=== PATIENT | female | born 1995 | race African-American/Black ===

== ENCOUNTER 2016-08-31 21:31 | Emergency (ER) | payer MEDICAID, OTHER ==
[~2016-08-31] VITALS: Ht 162.6 cm; Wt 85.3 kg
[2016-09-01] MEDS ORDERED: IBUPROFEN 800MG TABLET PO ONE (01:45)
[2016-09-01 02:38] LABS: BASOPHILS % 0.5 % (0.0-2.0); EOSINOPHILS % 2.4 % (0.0-5.0); HEMATOCRIT. 34.2 % (36.0-48.0); HEMOGLOBIN. 10.8 g/dL (12.0-16.0); LYMPHOCYTES % 39.5 % (20.0-50.0); MEAN CORPUSCULAR HEMOGLOBIN 20.9 pg (28.0-32.0); MEAN CORPUSCULAR VOLUME 66.1 fL (81.0-99.0); MEAN PLATELET VOLUME 7.4 fl (7.4-10.4); MONOCYTES % 4.3 % (2.0-8.0); NEUTROPHILS % 53.3 % (40.0-76.0); PLATELET 344 x1000/uL (130-400); RED BLOOD CELL COUNT 5.18 mill/uL (4.2-5.4); RED CELL DISTRIBUTION WIDTH 18.6 % (11.6-14.6)
[2016-09-01 02:47] LABS: CARBON DIOXIDE 27 mEq/L (21-32); CHLORIDE 106 mEq/L (98-107)
[2016-09-01 03:11] VITALS: BP 120/75
[2016-09-01] MEDS ORDERED: ACETAMINOPHEN 325MG TABLET PO ONE (03:45)
[2016-09-01 04:12] LABS: CLARITY URINE TURBID (CLEAR); COLOR URINE YELLOW (YELLOW); GLUCOSE URINE NEGATIVE (NEGATIVE); KETONES URINE NEGATIVE (NEGATIVE); LEUKOCYTE ESTERASE URINE TRACE (NEGATIVE); NITRITE URINE POSITIVE (NEGATIVE); OCCULT BLOOD URINE 3+ (NEGATIVE); PH URINE 7.5 (4.5-8.0); PROTEIN URINE NEGATIVE (NEGATIVE); SPECIFIC GRAVITY URINE 1.025 (1.005-1.030)
[2016-09-01] MEDS ORDERED: TETANUS, DIPHTHERIA, PERTUSSIS VAC/PF 0.5ML (>7YR OLD) IM ONE (04:15)
== END 2016-09-01 04:53 | disposition home or self-care (01) ==
LOC: ER 21:31
DX: R51 Headache (principal); M79.671 Pain in right foot; J45.909 Unspecified asthma, uncomplicated; F12.90 Cannabis use, unspecified, uncomplicated
CPT/HCPCS: 36415; 70450; 71020; 73610; 73630; 80048; 81001; 85025; 90471; 90715; 93005; 99285

== ENCOUNTER 2017-05-31 00:33 | Emergency (ER) | payer MEDICAID, OTHER ==
[~2017-05-31] VITALS: Ht 162.6 cm; Wt 79.2 kg
[2017-05-31] MEDS ORDERED: ACETAMINOPHEN 325MG TABLET ONE (00:37)
[2017-05-31] MEDS ORDERED: ACETAMINOPHEN 325MG TABLET PO STA (03:56)
[2017-05-31] MEDS ORDERED: AZITHROMYCIN 500 MG in DEXT 5% WATER 250 ML IV ONE (04:00)
[2017-05-31] MEDS ORDERED: CEFTRIAXONE 1 G PREMIX 50 ML IV ONE (04:00)
[2017-05-31] MEDS ORDERED: SODIUM CHLORIDE 0.9% 1000ML BAG (SEPSIS BOLUS) IV ONE (04:00)
[2017-05-31 04:20] LABS: BASOPHILS % 0.4 % (0.0-2.0); EOSINOPHILS % 0.1 % (0.0-5.0); HEMATOCRIT. 33.3 % (36.0-48.0); HEMOGLOBIN. 10.6 g/dL (12.0-16.0); MEAN CORPUSCULAR HEMOGLOBIN 21.4 pg (28.0-32.0); MEAN CORPUSCULAR VOLUME 67.2 fL (81.0-99.0); MEAN PLATELET VOLUME 7.7 fl (7.4-10.4); MONOCYTES % 8.7 % (2.0-8.0); NEUTROPHILS % 71.8 % (40.0-76.0); PLATELET 329 x1000/uL (130-400); RED BLOOD CELL COUNT 4.95 mill/uL (4.2-5.4); RED CELL DISTRIBUTION WIDTH 17.1 % (11.6-14.6)
[2017-05-31 04:26] LABS: INR 1.2; PROTHROMBIN TIME 12.8 sec (9.4-11.6)
[2017-05-31 04:29] LABS: CHLORIDE 101 mEq/L (98-107); ETHANOL BLOOD < 10 mg/dL
[2017-05-31 04:36] LABS: HCG SCREEN NEGATIVE
[2017-05-31] MEDS ORDERED: KETOROLAC 30MG/ML VIAL IV STA (04:42)
[2017-05-31 04:46] LABS: CLARITY URINE CLOUDY (CLEAR); COLOR URINE YELLOW (YELLOW); KETONES URINE NEGATIVE (NEGATIVE); LEUKOCYTE ESTERASE URINE 3+ (NEGATIVE); NITRITE URINE NEGATIVE (NEGATIVE); OCCULT BLOOD URINE TRACE (NEGATIVE); PROTEIN URINE TRACE (NEGATIVE); SPECIFIC GRAVITY URINE 1.009 (1.005-1.030)
[2017-05-31 05:03] LABS: *AMPHETAMINES SCREEN URINE NEGATIVE (NEGATIVE); *BARBITURATES SCREEN URINE NEGATIVE (NEGATIVE); *BENZODIAZEPINES SCREEN URINE NEGATIVE (NEGATIVE); *COCAINE SCREEN URINE NEGATIVE (NEGATIVE); CANNABINOID URINE SCREEN NEGATIVE (NEGATIVE); METHADONE URINE SCREEN NEGATIVE (NEGATIVE); PHENCYCLIDINE URINE SCREEN NEGATIVE (NEGATIVE)
[2017-05-31 05:05] LABS: OPIATES URINE SCREEN PRESUMTIVE POSITIVE (NEGATIVE)
[2017-05-31 05:07] LABS: BG CARBOXYHEMOGLOBIN 0.3 % (0.5-1.5); BG FRACTION INSPIRED OXYGEN 21; BG HCO3 ACT 21.6 mmol/L (22.0-26.0); BG METHEMOGLOBIN 0.4 % (0.0-1.5); BG OXYHEMOGLOBIN 96.3 % (94.0-97.0); BG PCO2 32.9 mmHg (35.0-45.0); BG PH 7.435 (7.350-7.450); BG SAMPLE SITE RIGHT RADIAL; BG TOTAL HEMOGLOBIN 10.8 g/dL (12.0-18.0); BG VENT MODE ROOM AIR
[2017-05-31] MEDS ORDERED: POTASSIUM BICARB/CIT ACID 25 MEQ TABLET.EFF PO SCH (05:20)
[2017-05-31 06:49] VITALS: BP 107/55
== END 2017-05-31 06:50 | disposition home or self-care (01) ==
LOC: ER 01:22
DX: J06.9 Acute upper respiratory infection, unspecified (principal); N39.0 Urinary tract infection, site not specified; E87.6 Hypokalemia; J45.909 Unspecified asthma, uncomplicated; G43.909 Migraine, unspecified, not intractable, without status migrainosus
CPT/HCPCS: 36415; 36600; 71045; 80053; 80305; 81003; 82375; 82805; 83605; 83690; 83880; 84484; 84703; 85025; 85610; 87040; 87077; 87086; 87186; 87804; 96361; 96365; 96375; 99285; G0482; J0456; J0696; J1885; J7030; Z7610; J7060

== ENCOUNTER 2018-06-18 15:34 | Emergency (ER) | payer OTHER ==
[~2018-06-18] VITALS: Ht 172.7 cm; Wt 70.0 kg
[2018-06-18] MEDS ORDERED: LORAZEPAM 1MG TABLET PO ONE (17:30)
[2018-06-18] MEDS ORDERED: IBUPROFEN 600MG TABLET PO ONE (17:30)
[2018-06-18 18:14] VITALS: BP 136/76
== END 2018-06-18 20:07 | disposition home or self-care (01) ==
LOC: ER 15:34
DX: S30.0XXA Contusion of lower back and pelvis, initial encounter (principal); J45.909 Unspecified asthma, uncomplicated; R55 Syncope and collapse; R51 Headache; W18.39XA Other fall on same level, initial encounter; Y93.89 Activity, other specified; Y92.89 Other specified places as the place of occurrence of the external cause; Y99.8 Other external cause status
CPT/HCPCS: 71045; 72100; 81025; 93005; 99284

== ENCOUNTER 2019-08-29 16:45 | Emergency (ER) | payer MEDICAID, OTHER ==
[~2019-08-29] VITALS: Ht 165.1 cm; Wt 93.0 kg
[2019-08-29] MEDS ORDERED: SODIUM CHLORIDE 0.9% 1,000 ML IV ONE (17:22)
[2019-08-29 19:03] LABS: BASOPHILS % 0.7 % (0.0-2.0); EOSINOPHILS % 3.3 % (0.0-5.0); HEMATOCRIT. 41.1 % (36.0-48.0); LYMPHOCYTES % 41.1 % (20.0-50.0); MEAN CORPUSCULAR VOLUME 72.7 fL (81.0-99.0); MEAN PLATELET VOLUME 8.4 fl (7.4-10.4); MONOCYTES % 4.8 % (2.0-8.0); NEUTROPHILS % 50.1 % (40.0-76.0); PLATELET 249 x1000/uL (130-400); RED BLOOD CELL COUNT 5.65 mill/uL (4.2-5.4); RED CELL DISTRIBUTION WIDTH 16.5 % (11.6-14.6)
[2019-08-29 20:03] LABS: CLARITY URINE CLOUDY (CLEAR); COLOR URINE YELLOW (YELLOW); KETONES URINE TRACE (NEGATIVE); LEUKOCYTE ESTERASE URINE 3+ (NEGATIVE); NITRITE URINE NEGATIVE (NEGATIVE); OCCULT BLOOD URINE 2+ (NEGATIVE); PH URINE 5.5 (4.5-8.0); PROTEIN URINE NEGATIVE (NEGATIVE); SPECIFIC GRAVITY URINE 1.023 (1.005-1.030)
[2019-08-29 20:58] LABS: CHLORIDE 105 mEq/L (98-107)
[2019-08-29] MEDS ORDERED: CEFTRIAXONE 1 G PREMIX 50 ML IV ONE (21:15)
[2019-08-29 22:00] VITALS: BP 121/74
[2019-08-29] MEDS ORDERED: CEPHALEXIN 250MG CAPSULE PO ONE (22:00)
== END 2019-08-29 22:00 | disposition home or self-care (01) ==
LOC: ER 16:48
DX: N30.00 Acute cystitis without hematuria (principal); N93.9 Abnormal uterine and vaginal bleeding, unspecified; J45.909 Unspecified asthma, uncomplicated; I10 Essential (primary) hypertension
CPT/HCPCS: 36415; 76830; 76856; 80053; 81003; 81025; 83690; 84702; 85025; 87077; 87086; 87186; 99284; J7030

== ENCOUNTER 2020-04-04 11:23 | Emergency (ER) | payer MEDICAID, OTHER ==
[~2020-04-04] VITALS: Ht 165.1 cm; Wt 82.0 kg
[2020-04-04 11:27] VITALS: BP 132/73
== END 2020-04-04 12:36 | disposition home or self-care (01) ==
LOC: ER 11:28
DX: S60.454A Superficial foreign body of right ring finger, initial encounter (principal); J45.909 Unspecified asthma, uncomplicated; W22.8XXA Striking against or struck by other objects, initial encounter; Y93.89 Activity, other specified; Y92.89 Other specified places as the place of occurrence of the external cause; Y99.8 Other external cause status
CPT/HCPCS: 99284

== ENCOUNTER 2020-08-15 11:17 | Emergency (ER) | payer OTHER, MEDICAID ==
[~2020-08-15] VITALS: Ht 162.6 cm; Wt 69.0 kg
[2020-08-15] MEDS ORDERED: ACETAMINOPHEN 325MG TABLET PO ONE (12:45)
[2020-08-15 12:53] LABS: CLARITY URINE CLOUDY (CLEAR); COLOR URINE YELLOW (YELLOW); KETONES URINE TRACE (NEGATIVE); LEUKOCYTE ESTERASE URINE 2+ (NEGATIVE); NITRITE URINE POSITIVE (NEGATIVE); OCCULT BLOOD URINE NEGATIVE (NEGATIVE); PH URINE 5.5 (4.5-8.0); PROTEIN URINE NEGATIVE (NEGATIVE); UROBILINOGEN URINE 0.2 E.U./dL (0.2-1.0)
[2020-08-15 13:08] LABS: BASOPHILS % 0.6 % (0.0-2.0); EOSINOPHILS % 1.5 % (0.0-5.0); HEMATOCRIT. 37.7 % (36.0-48.0); HEMOGLOBIN. 12.3 g/dL (12.0-16.0); LYMPHOCYTES % 35.8 % (20.0-50.0); MEAN CORPUSCULAR HEMOGLOBIN 23.2 pg (28.0-32.0); MEAN CORPUSCULAR VOLUME 71.4 fL (81.0-99.0); MEAN PLATELET VOLUME 7.6 fl (7.4-10.4); MONOCYTES % 4.3 % (2.0-8.0); NEUTROPHILS % 57.8 % (40.0-76.0); PLATELET 378 x1000/uL (130-400); RED BLOOD CELL COUNT 5.28 mill/uL (4.2-5.4)
[2020-08-15 13:38] LABS: HCG SCREEN NEGATIVE
[2020-08-15] MEDS ORDERED: NITR-87 MT (15:13)
[2020-08-15 15:22] VITALS: BP 131/81
== END 2020-08-15 15:22 | disposition home or self-care (01) ==
LOC: ER 11:50
DX: R10.9 Unspecified abdominal pain (principal)
CPT/HCPCS: 36415; 81003; 81025; 84703; 85025; 87077; 87186; 99283

== ENCOUNTER 2020-10-30 20:12 | Emergency (ER) | payer OTHER, MEDICAID ==
[~2020-10-30] VITALS: Ht 165.1 cm; Wt 92.0 kg
[~2020-10-30 20:12] MED LIST: NITR-87 MT
[2020-10-30 20:23] VITALS: BP 128/72
== END 2020-10-30 22:00 | disposition left against medical advice (07) ==
LOC: ER 20:12
DX: Z53.21 Procedure and treatment not carried out due to patient leaving prior to being seen by health care provider (principal)
CPT/HCPCS: 93005

== ENCOUNTER 2020-12-01 17:05 | Emergency (ER) | payer OTHER, MEDICAID ==
[~2020-12-01] VITALS: Ht 165.1 cm; Wt 64.0 kg
[2020-12-01] MEDS ORDERED: ACETAMINOPHEN 325MG TABLET PO ONE (19:00)
[2020-12-01 20:55] VITALS: BP 121/76
== END 2020-12-01 20:58 | disposition home or self-care (01) ==
LOC: ER 17:05
DX: M25.511 Pain in right shoulder (principal); M25.521 Pain in right elbow; M25.531 Pain in right wrist; Y07.411 Sister, perpetrator of maltreatment and neglect; Y04.0XXA Assault by unarmed brawl or fight, initial encounter; Y93.89 Activity, other specified; Y92.89 Other specified places as the place of occurrence of the external cause; J45.909 Unspecified asthma, uncomplicated
CPT/HCPCS: 71045; 73030; 73080; 73110; 81025; 99284

== ENCOUNTER 2021-01-02 13:25 | Emergency (ER) | payer MEDICAID, OTHER ==
[~2021-01-02] VITALS: Ht 165.1 cm; Wt 72.0 kg
[2021-01-02 13:26] VITALS: BP 113/69
[2021-01-02] MEDS ORDERED: ALBUTEROL 6.7GM HFA INHALER ORI ONE (15:15)
== END 2021-01-02 16:24 | disposition left against medical advice (07) ==
LOC: ER 14:12
DX: Z53.21 Procedure and treatment not carried out due to patient leaving prior to being seen by health care provider (principal)
CPT/HCPCS: 93005; 99283

== ENCOUNTER 2021-01-25 12:21 | Emergency (ER) | payer MEDICAID ==
[~2021-01-25] VITALS: Ht 162.6 cm; Wt 82.0 kg
[2021-01-25] MEDS ORDERED: IBUPROFEN 600MG TABLET PO STA (14:11)
[2021-01-25 14:33] VITALS: BP 103/73
[2021-01-25 14:42] LABS: BASOPHILS % 0.6 % (0.0-2.0); EOSINOPHILS % 0.6 % (0.0-5.0); HEMATOCRIT. 37.4 % (36.0-48.0); HEMOGLOBIN. 11.7 g/dL (12.0-16.0); LYMPHOCYTES % 30.6 % (20.0-50.0); MEAN CORPUSCULAR HEMOGLOBIN 22.2 pg (28.0-32.0); MEAN CORPUSCULAR VOLUME 71.1 fL (81.0-99.0); MEAN PLATELET VOLUME 7.5 fl (7.4-10.4); MONOCYTES % 3.7 % (2.0-8.0); NEUTROPHILS % 64.5 % (40.0-76.0); PLATELET 371 x1000/uL (130-400); RED BLOOD CELL COUNT 5.26 mill/uL (4.2-5.4); RED CELL DISTRIBUTION WIDTH 16.7 % (11.6-14.6)
[2021-01-25 14:49] LABS: CHLORIDE 107 mEq/L (98-107)
[2021-01-25 14:51] LABS: HCG SCREEN NEGATIVE
[2021-01-25 14:59] LABS: CLARITY URINE CLOUDY (CLEAR); COLOR URINE YELLOW (YELLOW); KETONES URINE TRACE (NEGATIVE); LEUKOCYTE ESTERASE URINE 2+ (NEGATIVE); NITRITE URINE NEGATIVE (NEGATIVE); OCCULT BLOOD URINE NEGATIVE (NEGATIVE); PROTEIN URINE TRACE (NEGATIVE); SPECIFIC GRAVITY URINE 1.025 (1.005-1.030)
[2021-01-25] MEDS ORDERED: CEFTRIAXONE SODIUM 1 G/VIAL IM ONE (15:15)
[2021-01-25] MEDS ORDERED: CEFTRIAXONE 1 G PREMIX 50 ML IV NR (15:15)
== END 2021-01-25 16:25 | disposition home or self-care (01) ==
LOC: ER 12:21
DX: N12 Tubulo-interstitial nephritis, not specified as acute or chronic (principal); N83.201 Unspecified ovarian cyst, right side; D50.9 Iron deficiency anemia, unspecified; J45.909 Unspecified asthma, uncomplicated; Z79.899 Other long term (current) drug therapy
CPT/HCPCS: 36415; 76830; 76856; 80053; 81003; 83690; 84703; 85025; 87077; 87086; 87186; 96372; 99284; J0696

== ENCOUNTER 2021-02-09 13:40 | Emergency (ER) | payer MEDICAID ==
[~2021-02-09] VITALS: Ht 165.1 cm; Wt 61.0 kg
[2021-02-09 13:49] VITALS: BP 135/82
[2021-02-09] MEDS ORDERED: IPRATROPIUM BROMIDE (0.02%) 0.5MG/2.5ML NEB HHN ONE (14:00)
[2021-02-09] MEDS ORDERED: ALBUTEROL (0.083%) 2.5MG/3ML NEB HHN ONE (14:00)
== END 2021-02-09 16:49 | disposition left against medical advice (07) ==
LOC: ER 13:40
DX: R07.89 Other chest pain (principal); J45.909 Unspecified asthma, uncomplicated
CPT/HCPCS: 93005; 99283

== ENCOUNTER 2021-03-01 19:18 | Emergency (ER) | payer MEDICAID ==
[~2021-03-01] VITALS: Ht 165.1 cm; Wt 64.0 kg
[2021-03-01 19:34] VITALS: BP 115/71
[2021-03-01 22:10] LABS: BASOPHILS % 0.4 % (0.0-2.0); EOSINOPHILS % 0.7 % (0.0-5.0); HEMATOCRIT. 39.1 % (36.0-48.0); HEMOGLOBIN. 12.3 g/dL (12.0-16.0); LYMPHOCYTES % 41.7 % (20.0-50.0); MEAN CORPUSCULAR HEMOGLOBIN 22.3 pg (28.0-32.0); MEAN CORPUSCULAR VOLUME 71.2 fL (81.0-99.0); MEAN PLATELET VOLUME 7.7 fl (7.4-10.4); MONOCYTES % 6.1 % (2.0-8.0); NEUTROPHILS % 51.1 % (40.0-76.0); PLATELET 381 x1000/uL (130-400); RED CELL DISTRIBUTION WIDTH 17.2 % (11.6-14.6)
[2021-03-01 22:12] LABS: CHLORIDE 109 mEq/L (98-107)
== END 2021-03-01 22:25 | disposition left against medical advice (07) ==
LOC: ER 19:18
DX: R10.9 Unspecified abdominal pain (principal); Z53.21 Procedure and treatment not carried out due to patient leaving prior to being seen by health care provider
CPT/HCPCS: 36415; 71045; 80053; 85025; 99281

== ENCOUNTER 2021-08-18 18:24 | Emergency (ER) | payer MEDICAID ==
[~2021-08-18] VITALS: Ht 165.1 cm; Wt 75.0 kg
[2021-08-18] MEDS ORDERED: LIDOCAINE HCL 1% 20ML VIAL (Pyxis) INJ INFIL ONE (20:15)
[2021-08-18] MEDS ORDERED: BACITRACIN 15GM TUBE TOP ONE (21:15)
[2021-08-18] MEDS ORDERED: BACITRACIN 15GM TUBE TOP SCH (22:00)
[2021-08-18] MEDS ORDERED: BACITRACIN ZINC OINT UDPKT TOP ONE (22:00)
[2021-08-18 22:32] VITALS: BP 120/70
== END 2021-08-18 22:33 | disposition home or self-care (01) ==
LOC: ER 18:24
DX: S61.211A Laceration without foreign body of left index finger without damage to nail, initial encounter (principal); W26.8XXA Contact with other sharp object(s), not elsewhere classified, initial encounter; Y93.89 Activity, other specified; Y92.038 Other place in apartment as the place of occurrence of the external cause
CPT/HCPCS: 12001; 99282; J3490

== ENCOUNTER 2022-04-17 22:11 | Emergency (ER) | payer MEDICAID ==
[~2022-04-17] VITALS: Ht 165.1 cm; Wt 59.0 kg
[2022-04-17 22:22] VITALS: BP 128/68
[2022-04-18] MEDS ORDERED: MAGNESIUM/ALUMINUM HYDROXIDE/SIMETHICONE 30ML UDC PO STA (00:43)
[2022-04-18 01:04] LABS: BASOPHILS % 0.4 % (0.0-2.0); EOSINOPHILS % 0.9 % (0.0-5.0); HEMATOCRIT. 41.1 % (36.0-48.0); HEMOGLOBIN. 12.9 g/dL (12.0-16.0); MEAN CORPUSCULAR HEMOGLOBIN 22.7 pg (28.0-32.0); MEAN CORPUSCULAR VOLUME 72.2 fL (81.0-99.0); MEAN PLATELET VOLUME 7.3 fl (7.4-10.4); MONOCYTES % 3.5 % (2.0-8.0); NEUTROPHILS % 59.2 % (40.0-76.0); PLATELET 348 x1000/uL (130-400); RED BLOOD CELL COUNT 5.69 mill/uL (4.2-5.4); RED CELL DISTRIBUTION WIDTH 16.1 % (11.6-14.6)
[2022-04-18 01:08] LABS: CHLORIDE 105 mEq/L (98-107)
[2022-04-18 01:38] LABS: HCG SCREEN NEGATIVE
[2022-04-18 02:48] LABS: CLARITY URINE CLOUDY (CLEAR); COLOR URINE YELLOW (YELLOW); KETONES URINE TRACE (NEGATIVE); LEUKOCYTE ESTERASE URINE 1+ (NEGATIVE); NITRITE URINE POSITIVE (NEGATIVE); OCCULT BLOOD URINE NEGATIVE (NEGATIVE); PROTEIN URINE NEGATIVE (NEGATIVE); SPECIFIC GRAVITY URINE 1.023 (1.005-1.030)
[2022-04-18 03:00] LABS: *AMPHETAMINES SCREEN URINE NEGATIVE (NEGATIVE); *BARBITURATES SCREEN URINE NEGATIVE (NEGATIVE); *BENZODIAZEPINES SCREEN URINE NEGATIVE (NEGATIVE); *COCAINE SCREEN URINE NEGATIVE (NEGATIVE); CANNABINOID URINE SCREEN NEGATIVE (NEGATIVE); METHADONE URINE SCREEN NEGATIVE (NEGATIVE); PHENCYCLIDINE URINE SCREEN NEGATIVE (NEGATIVE)
[2022-04-18] MEDS ORDERED: CEPHALEXIN 250MG CAPSULE PO NR (04:00)
[2022-04-18] MEDS ORDERED: CEPH500C2 MT (04:02)
[2022-04-18 04:23] LABS: OPIATES URINE SCREEN PRESUMTIVE POSITIVE (NEGATIVE)
== END 2022-04-18 04:08 | disposition home or self-care (01) ==
LOC: ER 22:11
DX: N39.0 Urinary tract infection, site not specified (principal); J45.909 Unspecified asthma, uncomplicated
CPT/HCPCS: 36415; 74176; 80053; 80305; 81003; 84703; 85025; 99284

== ENCOUNTER 2022-06-12 11:51 | Emergency (ER) | payer MEDICAID ==
[~2022-06-12 11:51] MED LIST changes: +CEPH500C2 MT
== END 2022-06-12 13:16 | disposition left against medical advice (07) ==
LOC: ER 11:51
DX: Z53.21 Procedure and treatment not carried out due to patient leaving prior to being seen by health care provider (principal)

== ENCOUNTER 2023-02-08 09:55 | Emergency (ER) | payer MEDICAID ==
[~2023-02-08] VITALS: Ht 165.1 cm; Wt 65.7 kg
[2023-02-08 10:07] VITALS: TEMP 98.2; O2SAT 99
[2023-02-08] MEDS ORDERED: DICYCLOMINE 10 MG/5 ML ORAL SYR PO STA (11:06)
[2023-02-08] MEDS ORDERED: MAGNESIUM/ALUMINUM HYDROXIDE/SIMETHICONE 30ML UDC PO STA (11:06)
[2023-02-08 11:11] LABS: BASOPHILS % 0.6 % (0.0-2.0); DIFFERENTIAL COMMENT 0; EOSINOPHILS % 2.6 % (0.0-5.0); HEMATOCRIT. 38.6 % (36.0-48.0); HEMOGLOBIN. 12.3 g/dL (12.0-16.0); LYMPHOCYTES % 37.4 % (20.0-50.0); MEAN CORPUSCULAR HEMOGLOBIN 23.1 pg (28.0-32.0); MEAN CORPUSCULAR HGB CONC 31.9 g/dL (31.0-37.0); MEAN CORPUSCULAR VOLUME 72.4 fL (81.0-99.0); MEAN PLATELET VOLUME 7.7 fl (7.4-10.4); MONOCYTES % 3.7 % (2.0-8.0); NEUTROPHILS % 55.7 % (40.0-76.0); PLATELET 323 x1000/uL (130-400); RED BLOOD CELL COUNT 5.34 mill/uL (4.2-5.4); RED CELL DISTRIBUTION WIDTH 16.6 % (11.6-14.6)
[2023-02-08 11:40] LABS: ALANINE AMINOTRANSFERASE 13 IU/L (10-49); ALBUMIN 4.1 g/dL (3.2-4.8); ASPARTATE AMINOTRANSFERASE 18 IU/L (<34); BILIRUBIN TOTAL 0.5 mg/dL (0.1-1.0); CALCIUM 8.9 mg/dL (8.7-10.4); CARBON DIOXIDE 25 mEq/L (21-32); CHLORIDE 110 mEq/L (98-107); CREATININE 0.9 mg/dL (0.6-1.0); GLUCOSE 67 mg/dL (70-105); HCG SCREEN NEGATIVE; POTASSIUM 4.6 mEq/L (3.5-5.1); PROTEIN TOTAL 7.3 g/dL (6.0-8.3); SODIUM 141 mEq/L (136-145); UREA NITROGEN BLOOD 9 mg/dL (9-23)
[2023-02-08] MEDS ORDERED: MAGNESIUM/ALUMINUM HYDROXIDE/SIMETHICONE 30ML UDC PO NR (15:30)
[2023-02-08] MEDS ORDERED: IBUP-2029 MT (15:46)
[2023-02-08] MEDS ORDERED: DICY-18 MT (15:47)
[2023-02-08 16:00] VITALS: BP 130/82; PULSE 78; RESP 20
== END 2023-02-08 16:28 | disposition home or self-care (01) ==
LOC: ER 09:55
DX: R10.84 Generalized abdominal pain (principal); J45.909 Unspecified asthma, uncomplicated
CPT/HCPCS: 36415; 76830; 76856; 80053; 84703; 85025; 99284

== ENCOUNTER 2023-08-26 12:47 | Emergency (ER) | payer MEDICAID ==
[~2023-08-26] VITALS: Ht 172.7 cm; Wt 82.0 kg
[~2023-08-26 12:47] MED LIST changes: +DICY-18 MT; +IBUP-2029 MT
[2023-08-26] MEDS ORDERED: ALBUTEROL (12:51)
[2023-08-26 12:54] VITALS: BP 137/98; PULSE 100; RESP 16; TEMP 98.4; O2SAT 98
[2023-08-26] MEDS: TETANUS, DIPHTHERIA, PERTUSSIS VAC/PF 0.5ML (>10YR OLD) IM ONE (14:00)
[2023-08-26 14:20] LABS: BASOPHILS % 0.3 % (0.0-2.0); DIFFERENTIAL COMMENT 0; HEMATOCRIT. 37.1 % (36.0-48.0); HEMOGLOBIN. 11.6 g/dL (12.0-16.0); LYMPHOCYTES % 25.2 % (20.0-50.0); MEAN CORPUSCULAR HEMOGLOBIN 22.6 pg (28.0-32.0); MEAN CORPUSCULAR HGB CONC 31.4 g/dL (31.0-37.0); MEAN CORPUSCULAR VOLUME 72.1 fL (81.0-99.0); MEAN PLATELET VOLUME 7.5 fl (7.4-10.4); MONOCYTES % 3.3 % (2.0-8.0); NEUTROPHILS % 69.2 % (40.0-76.0); PLATELET 364 x1000/uL (130-400); RED BLOOD CELL COUNT 5.14 mill/uL (4.2-5.4); RED CELL DISTRIBUTION WIDTH 15.8 % (11.6-14.6); WHITE BLOOD COUNT 9.1 x1000/uL (4.5-11.0)
[2023-08-26 14:27] LABS: CHLORIDE 109 mEq/L (98-107); POTASSIUM 3.7 mEq/L (3.5-5.1); SODIUM 139 mEq/L (136-145)
[2023-08-26 14:28] LABS: CARBON DIOXIDE 24 mEq/L (21-32)
[2023-08-26 14:29] LABS: CALCIUM 8.8 mg/dL (8.7-10.4)
[2023-08-26 14:31] LABS: HCG SCREEN NEGATIVE
[2023-08-26 14:33] LABS: GLUCOSE 102 mg/dL (70-105)
[2023-08-26 14:34] LABS: UREA NITROGEN BLOOD 11 mg/dL (9-23)
[2023-08-26 14:35] LABS: ALANINE AMINOTRANSFERASE 16 IU/L (10-49); ASPARTATE AMINOTRANSFERASE 21 IU/L (<34)
[2023-08-26 14:36] LABS: BILIRUBIN TOTAL 0.3 mg/dL (0.1-1.0); PROTEIN TOTAL 7.2 g/dL (6.0-8.3)
[2023-08-26] MEDS: KETOROLAC 15MG/ML VIAL IV ONE ×2 (15:05→15:52)
[2023-08-26] MEDS: AMPICILLIN SOD/SULBACTAM NA 3 G in SODIUM CHLORIDE 0.9% 100 ML IV SCH (15:05)
== END 2023-08-26 15:50 | disposition left against medical advice (07) ==
LOC: ER 12:47
DX: S01.411A Laceration without foreign body of right cheek and temporomandibular area, initial encounter (principal); S01.511A Laceration without foreign body of lip, initial encounter; S01.81XA Laceration without foreign body of other part of head, initial encounter; J45.909 Unspecified asthma, uncomplicated; X58.XXXA Exposure to other specified factors, initial encounter; Y93.89 Activity, other specified; Y92.89 Other specified places as the place of occurrence of the external cause; Y99.8 Other external cause status
CPT/HCPCS: 80053; 84703; 85025; 86850; 86900; 86901; 87040; 36415; 90715; 90471; 96365; 96375; 96376; 99284; J0295; J1885; J7050; Z7610

== ENCOUNTER 2024-11-17 08:55 | Emergency (ER) | payer MEDICAID ==
[~2024-11-17] VITALS: Ht 165.1 cm; Wt 109.0 kg
[~2024-11-17 08:55] MED LIST changes: +ALBUTEROL; +IBUP-1455 MT; -IBUP-2029 MT
[2024-11-17 09:06] VITALS: O2SAT 100
[2024-11-17 09:36] LABS: BASOPHILS % 0.8 % (0.0-2.0); EOSINOPHILS % 2.5 % (0.0-5.0); HEMATOCRIT. 36.7 % (36.0-48.0); HEMOGLOBIN. 11.5 g/dL (12.0-16.0); LYMPHOCYTES % 37.7 % (20.0-50.0); MEAN PLATELET VOLUME 7.3 fl (7.4-10.4); MONOCYTES % 3.5 % (2.0-8.0); NEUTROPHILS % 55.5 % (40.0-76.0); PLATELET 323 x1000/uL (130-400); RED BLOOD CELL COUNT 5.25 mill/uL (4.2-5.4); RED CELL DISTRIBUTION WIDTH 16.2 % (11.6-14.6)
[2024-11-17 09:37] LABS: CLARITY URINE CLEAR (CLEAR); COLOR URINE YELLOW (YELLOW); GLUCOSE URINE NEGATIVE (NEGATIVE); KETONES URINE NEGATIVE (NEGATIVE); LEUKOCYTE ESTERASE URINE 1+ (NEGATIVE); NITRITE URINE POSITIVE (NEGATIVE); OCCULT BLOOD URINE NEGATIVE (NEGATIVE); PH URINE 6.0 (4.5-8.0); PROTEIN URINE NEGATIVE (NEGATIVE); SPECIFIC GRAVITY URINE 1.018 (1.005-1.030); UROBILINOGEN URINE 1.0 E.U./dL (0.2-1.0)
[2024-11-17 09:47] LABS: ADD RBC MORPHOLOGY YES
[2024-11-17 09:49] LABS: MUCUS URINE 1+ /lpf (< = 2+); SQUAMOUS EPITHELIAL CELL URINE 1+ /lpf (RARE/1+)
[2024-11-17 09:50] LABS: FINE GRANULAR CASTS URINE 0-5 /lpf
[2024-11-17 09:50] LABS: CREATININE 1.2 mg/dL (0.6-1.0)
[2024-11-17 09:51] LABS: UREA NITROGEN BLOOD 12 mg/dL (9-23)
[2024-11-17 09:51] LABS: BACTERIA URINE 3+; RBC URINE 0-2 /hpf (0-2)
[2024-11-17 10:07] LABS: PLATELET ESTIMATE NORMAL
[2024-11-17] MEDS: KETOROLAC 15MG/ML VIAL IV ONE (10:15)
[2024-11-17 10:53] LABS: HCG SCREEN NEGATIVE
[2024-11-17] MEDS ORDERED: CEFP200T13 MT (13:56)
[2024-11-17] MEDS: IOHEXOL-300 100 ML BOTTLE ONE (14:02)
[2024-11-17 14:30] VITALS: BP 141/94; PULSE 84; RESP 16; TEMP 36.9; O2SAT 100
== END 2024-11-17 14:31 | disposition home or self-care (01) ==
LOC: ER 08:55
DX: N83.292 Other ovarian cyst, left side (principal); N88.8 Other specified noninflammatory disorders of cervix uteri; J45.909 Unspecified asthma, uncomplicated; Z79.899 Other long term (current) drug therapy
CPT/HCPCS: 80048; 81003; 81025; 84703; 85025; 87086; 87186; 87077; 36415; 74177; 76830; 76856; 96374; 99285; Q9967; J1885; Z7610

== ENCOUNTER 2024-11-30 23:09 | Emergency (ER) | payer MEDICAID ==
[~2024-11-30] VITALS: Ht 165.1 cm; Wt 109.0 kg
[~2024-11-30 23:09] MED LIST changes: +CEFP200T13 MT
[2024-11-30 23:11] VITALS: O2SAT 100
[2024-11-30 23:20] VITALS: BP 122/91; PULSE 88; RESP 16; TEMP 36.8; O2SAT 100
== END 2024-12-01 02:32 | disposition home or self-care (01) ==
LOC: ER 23:09
DX: S61.511A Laceration without foreign body of right wrist, initial encounter (principal); J45.909 Unspecified asthma, uncomplicated; Z79.899 Other long term (current) drug therapy; W25.XXXA Contact with sharp glass, initial encounter; Y93.89 Activity, other specified; Y92.89 Other specified places as the place of occurrence of the external cause; Y99.8 Other external cause status
CPT/HCPCS: 12002; 73110; 99283